=== PATIENT | male | born 1995 | race Caucasian/White ===

== ENCOUNTER 2016-11-22 12:09 | Emergency (ER) | payer SELFPAY | END 2016-11-22 15:03 | disposition left against medical advice (07) | LOC: ER 12:09 | DX: Z53.20 Procedure and treatment not carried out because of patient's decision for unspecified reasons (principal) ==

== ENCOUNTER 2016-11-23 19:11 | Emergency (ER) | payer MEDICAID ==
--- NOTE | 2016-11-23 19:33 | Emergency Department Record ---
History of Present Illness - General Chief Complaint: Back Pain/Injury Stated Complaint: BACK INJURY Time Seen by Provider: 11/23/16 19:28 Source: Patient Mode of Arrival: Ambulatory Limitations: No limitations - History of Present Illness Initial Comments: 21 yo male presents to ED with a CC of low back pain following a slip and fall on ice 3-4 days ago. Patient reports pain and inability to sit on examination. Patient denies numbness, tingling, or weakness symptoms, and patient denies health problems at his baseline. MD Complaint: Back pain Onset/Timin -: Days(s) Similar Symptoms Previously: No Place: Home Radiation: None Severity scale (1-10): 8 Quality: Aching, Dull Consistency: Constant Improves With: Immobilization, Other Worsens With: Sitting upright Context: Fall Associated Symptoms: Denies other symptoms Treatments Prior to Arrival: NSAIDS - Related Data Previous Rx's Medication Instructions Recorded Diazepam [Valium] 5 mg PO Q8H #20 tab 11/23/16 Hydrocodone/Acetaminophen [Stow 1 tab PO Q6H PRN #20 tab 11/23/16 5mg/325mg] Allergies Allergy/AdvReac Type Severity Reaction Status Date / Time No Known Drug Allergies Allergy Verified 11/23/16 19:15 Travel Screening - Travel/Exposure Within Last 30 Days Have you traveled within the last 30 days?: No - Travel/Exposure Within Last Year Have you traveled outside the [place] in the last year?: No - Additonal Travel Details Have you been exposed to anyone with a communicable illness?: No - Travel Symptoms Symptom Screening: None Review of Systems Constitutional: Denies: Chills, Fever, Malaise, Night sweats Eyes: Denies: Eye discharge, Eye pain ENT: Denies: Congestion, Ear pain Respiratory: Denies: Cough, Dyspnea Cardiovascular: Denies: Chest pain, Dyspnea on exertion Endocrine: Denies: Fatigue, Heat or cold intolerance Gastrointestinal: Denies: Abdominal pain, Nausea, Vomiting Musculoskeletal: Reports: Back pain. Denies: Arthralgia, Gout, Joint swelling Skin: Denies: Bruising, Change in color Neurological: Denies: Abnormal gait, Confusion, Headache, Seizure Psychiatric: Denies: Anxiety Hematological/Lymphatic: Denies: Anemia, Blood Clots Past Medical History - SOCIAL HISTORY Smoking Status: Light tobacco smoker (<10/day) Alcohol Use: None Drug Use: None - RESPIRATORY Hx Respiratory Disorders: No - CARDIOVASCULAR Hx Cardio Disorders: No - NEURO Hx Neuro Disorders: No - GI Hx GI Disorders: No - Hx Genitourinary Disorders: No - ENDOCRINE Hx Endocrine Disorders: No - MUSCULOSKELETAL Hx Musculoskeletal Disorders: No - PSYCH Hx Psych Problems: No - HEMATOLOGY/ONCOLOGY Hx Hematology/Oncology Disorders: No Family Medical History Any Significant Family History?: No Physical Exam - General General Appearance: Alert, Oriented x3, Cooperative, Moderate distress Limitations: No limitations - Head Head exam: Atraumatic, Normocephalic, Normal inspection Head exam detail: negative: Abrasion, Contusion, Barba's sign, General tenderness, Hematoma, Laceration - Eye Eye exam: Normal appearance. negative: Conjunctival injection, Periorbital swelling, Periorbital tenderness, Scleral icterus - ENT Ear exam: negative: Auricular hematoma, Auricular trauma Nasal Exam: negative: Active bleeding, Discharge, Dried blood, Foreign body Mouth exam: Other (injury to the lower lip secodnary to "bite injury when I fell "). negative: Drooling, Laceration, Muffled voice, Tongue elevation - Neck Neck exam: Normal inspection. negative: Meningismus, Tenderness - Respiratory Respiratory exam: Normal lung sounds bilaterally. negative: Respiratory distress, Rhonchi, Stridor, Wheezes - Cardiovascular Cardiovascular Exam: Regular rate, Normal rhythm, Normal heart sounds - GI/Abdominal GI/Abdominal exam: Soft. negative: Pulsatile mass, Rebound, Rigid, Tenderness - Rectal Rectal exam: Deferred - exam: Deferred - Extremities Extremities exam: Normal inspection. negative: Calf tenderness, Pedal edema, Tenderness - Back Back exam: Reports: Paraspinal tenderness, Vertebral tenderness (lumbar spine down to the coccyx). Denies: CVA tenderness (R), CVA tenderness (L) - Neurological Neurological exam: Alert, Normal gait, Oriented X3 - Psychiatric Psychiatric exam: Normal affect, Normal mood - Skin Skin exam: Normal color. negative: Abrasion Type of lesion: negative: abrasion Course Vital Signs 11/23/16 19:16 Temperature 98.1 F Pulse Rate 100 H Respiratory 20 Rate Blood Pressure 122/79 Pulse Ox 98 - Reevaluation(s) Reevaluation #1: 11/23/16 20:44 CT Lumbar Spine: L3 transverse process fracture Patient was updated on CT imaging results, reports that his pain symptoms are improved with Stow and Valium. Patient appears stable for discharge home with instructions to follow-up with his PCP in 3-5 days for reassessment of his pain symptoms at that time. Fracture is otherwise stable, and clam-shell brace is not felt to be needed at this time for pain control. Disposition Disposition: Discharge Clinical Impression: Fracture of transverse process of lumbar vertebra Qualifiers: Encounter type: initial encounter Fracture type: closed Qualified Code(s): S32.008A - Other fracture of unspecified lumbar vertebra, initial encounter for closed fracture Disposition: Home, Self-Care Condition: (2) Stable Instructions: Thoracolumbar Fracture (ED) Additional Instructions: Return to ED if your symptoms worsen or if you have any concerns. Stow and Valium as directed. Follow-up with your family doctor in 3-5 days for reassessment of your pain symptoms. Prescriptions: Hydrocodone/Acetaminophen [Stow 5mg/325mg] 1 tab PO Q6H PRN #20 tab PRN Reason: Pain - General Diazepam [Valium] 5 mg PO Q8H #20 tab Forms: Patient Portal Access Time of Disposition: 20:49
[2016-11-23] MEDS: DIAZEPAM 5 MG TABLET PO ONE (19:35)
[2016-11-23] MEDS: HYDROCODONE/APAP 5/325MG TABLET PO ONE (19:35)
--- NOTE | 2016-11-27 15:31 | CT SCAN REPORT ---
EXAM: CT OF THE LUMBAR SPINE WITHOUT CONTRAST HISTORY: FELL ON ICE THREE DAYS AGO. COMPLAINS OF SEVERE RIGHT LOWER BACK PAIN. TECHNIQUE: Thin collimation helical CT examination of the lumbar spine was performed with images obtained from the inferior T11 vertebral body level to the sacrococcygeal junction. Coronal and sagittal reformatted images were generated and reviewed. Comparison: None. FINDINGS: There is normal bone mineralization. Five non-rib bearing lumbar type vertebra are present. There is a minimally angulated (apex posterior) fracture of the right transverse process of L3. No other convincing fracture demonstrated. The vertebral bodies are normal in alignment and height. The sacroiliac joints are symmetric and normal in appearance. The coccyx is not entirely included on the examination. There is, however, no subluxation at the sacrococcygeal junction level. Minimal posterior disk bulging is questioned at the L4-L5 and L5-S1 levels without central canal stenosis. No neural foraminal narrowing. The facet joints are maintained. The abdominal aorta is normal in appearance. The kidneys to the extent visualized are unremarkable. The appendix is visualized and normal in appearance. IMPRESSION: 1. MINIMALLY ANGULATED FRACTURE OF THE RIGHT TRANSVERSE PROCESS OF L3. NO OTHER FRACTURE NOR SUBLUXATION. 2. MILD POSTERIOR DISK BULGING AT THE LOWER LUMBAR LEVELS WITHOUT CENTRAL CANAL STENOSIS. JOB NUMBER: [id number] [id number]
== END 2016-11-23 20:56 | disposition home or self-care (01) ==
LOC: ER 19:11
DX: S32.039A Unspecified fracture of third lumbar vertebra, initial encounter for closed fracture (principal); W00.0XXA Fall on same level due to ice and snow, initial encounter
CPT/HCPCS: 99283 ×2; 72131; J3490